=== PATIENT | male | born 1940 | race Caucasian/White ===

== ENCOUNTER 2017-02-07 14:59 | Emergency (ER) | payer MEDICARE, OTHER ==
[2017-02-07 15:05] VITALS: BP 110/61
[2017-02-07] MEDS ORDERED: oxyCOD/ACETAMIN 5 MG/325 MG TABLET PO STA (15:37)
[2017-02-07] MEDS ORDERED: oxyCOD/ACETAMIN 5 MG/325 MG TABLET PO ONE (15:38)
--- NOTE | 2017-02-07 15:38 | XRAY Preliminary Report ---
Exam: XR Shoulder 3 View LT IMPRESSION: 1. Acute oblique left proximal humeral diaphyseal fracture, not significantly displaced. Recommend a dedicated left humerus x-ray to further evaluate. [facility] SITE ID: [id number]
--- NOTE | 2017-02-07 15:40 | XRAY Report ---
EXAM: LEFT SHOULDER RADIOGRAPHY EXAM DATE: 02/07/2017 03:30 PM. CLINICAL HISTORY: Injury. Left arm injury. COMPARISON: None. TECHNIQUE: 3 views. FINDINGS: Bones: Acute oblique left proximal humeral diaphyseal fracture, not significantly displaced. Recommen d a dedicated left humerus x-ray to further evaluate. Joints: The glenohumeral and acromioclavicular joints are normal. Soft tissues: Unremarkable IMPRESSION: 1. Acute oblique left proximal humeral diaphyseal fracture, not significantly displaced. Recommend a dedicated left humerus x-ray to further evaluate. [facility] Referring Provider Line: [phone] SITE ID: [id number]
--- NOTE | 2017-02-07 16:39 | XRAY Report ---
TWO VIEW LEFT HUMERUS: 02/07/2017 CLINICAL INDICATION: Fracture. FINDINGS: Frontal and lateral views of the left humerus demonstrate a nondisplaced spiral fracture o f the proximal humeral shaft. No distal fracture is seen. No radiopaque foreign body is appreciated i n the soft tissues. IMPRESSION: NONDISPLACED SPIRAL FRACTURE OF THE PROXIMAL HUMERAL SHAFT. JOB #: [id number] EXT JOB #:[id number]
--- NOTE | 2017-02-07 17:26 | ED Physician Documentation ---
History of Present Illness - Stated complaint Stated Complaint: LT SHOULDER PAIN - Chief complaint Chief Complaint: Ext Problem - Additonal information Additional information: hx from pt 76 male R handed jose FOOSH type injury few days ago trying to catch a spider in a glass pain since abruptly worse today after reaching Review of Systems Musculoskeletal: reports: Extremity pain PD PAST MEDICAL HISTORY - Past Medical History Past Medical History: Yes Cardiovascular: High cholesterol Respiratory: None Endocrine/Autoimmune: None GI: Colon polyps : Benign prostate hypertrophy HEENT: None Psych: None Musculoskeletal: Osteoarthritis Derm: Rosacea - Past Surgical History Past Surgical History: Yes General: Colonoscopy Ortho:  - Present Medications Home Medications: Ambulatory Orders Medication Instructions Recorded Confirmed Cholecalciferol (Vitamin D3) 1 tab PO DAILY 10/30/15 01/12/16 [Vitamin D] Simvastatin 10 mg PO DAILY 01/12/16 01/12/16 Oxycodone HCl/Acetaminophen 1 each PO Q6HR PRN #15 tablet 02/07/17 [Percocet 5-325 mg Tablet] - Allergies Allergies/Adverse Reactions: Allergies Allergy/AdvReac Type Severity Reaction Status Date / Time No Known Drug Allergies Allergy Verified 04/30/16 18:13 - Social History Does the pt smoke?: No Smoking Status: Never smoker Does the pt drink ETOH?: No Does the pt have substance abuse?: No - Immunizations Immunizations are current?: No - POLST Patient has POLST: No PD ED PE NORMAL - Vitals Vital signs reviewed: Yes - Cardiac Cardiac: RRR - Respiratory Respiratory: No respiratory distress, Clear bilaterally - Extremities Extremities: Other (L shoulder held to pt side, will not move in any direction, no sulcus or displaced humeral head, TTP ant and lateral, + sensation to deltoid and to ulnar median radial hand, 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/OK/thumbs up all 5/5, + radial pulse) Results - Vitals Vitals: Vital Signs - 24 hr 02/07/17 15:02 Temperature 36.6 C Heart Rate 66 Respiratory 18 Rate Blood Pressure 110/61 O2 Saturation 99 Oxygen O2 Source Room air - Rads (name of study) shoulder humerus Radiology: See rad report (non displaced spiral fx proximal to mid humerus) Procedures - Splint (location) LUE Splint applied by: Tech Type of splint: Long arm Other: Patient tolerated well, No complications, Neurovascular intact, Sling provided Departure - Departure Disposition: 01 Home, Self Care Clinical Impression: Humerus fracture Qualifiers: Encounter type: initial encounter Humerus Location: proximal Fracture type: closed Fracture morphology: unspecified fracture morphology Laterality: left Qualified Code(s): S42.202A - Unspecified fracture of upper end of left humerus , initial encounter for closed fracture Condition: Good Instructions: ED Splint Care Saleem Herzog Fx Follow-Up: [facility] [Provider Group] (call tomorrow to schedule) Prescriptions: Oxycodone HCl/Acetaminophen [Percocet 5-325 mg Tablet] 1 each PO Q6HR PRN #15 tablet PRN Reason: Severe Pain
== END 2017-02-07 17:49 | disposition home or self-care (01) ==
LOC: ED 14:59
DX: S42.345A Nondisplaced spiral fracture of shaft of humerus, left arm, initial encounter for closed fracture (principal); W18.30XA Fall on same level, unspecified, initial encounter; Y93.89 Activity, other specified
CPT/HCPCS: 29105; 73030; 73060; 99283; A9270

== ENCOUNTER 2017-05-04 15:48 | Outpatient (CLI) | payer MEDICARE, OTHER ==
--- NOTE | 2017-05-05 16:52 | CT Report ---
EXAM: LEFT FOOT CT WITHOUT CONTRAST EXAM DATE: 05/04/2017 04:56 PM. CLINICAL HISTORY: Non displaced fracture of body of left calcaneus. COMPARISON: Radiographs 05/04/2017. TECHNIQUE: Thin-section axial images were acquired of the foot without contrast. Post-processing: Cor onal and sagittal reformats. Other: None. In accordance with CT protocol optimization, one or more of the following dose reduction techniques w ere utilized for this exam: automated exposure control, adjustment of mA and/or KV based on patient s ize, or use of iterative reconstructive technique. FINDINGS: Bones and articular surfaces: There is a comminuted fracture involving the body of the calcaneus. Max imum cortical step-off at the medial and lateral aspect approximately 3-3.5 mm. Small articular surfa ce involvement without significant step-off or distraction. Posterior superior margin of the fracture extends just posterior to the posterior articular facet. Small nondisplaced fracture extends along t he anterior lateral margin of the posterior facet. Oblique nondisplaced comminuted fractures involve the articular surface at the middle facet with no measurable step-off or distraction. Nondisplaced fr acture at the lateral margin of the distal articular surface at the calcaneocuboid joint. There is jonatan int space narrowing and irregular subcortical cyst formation and cortical bone deformity at the artic ulation between the cuboid and navicular. Small posterior calcaneal enthesophyte formation. Bipartite medial sesamoid. Degenerative subchondral cyst formation at the first metatarsal head. Soft tissues: Nonspecific subcutaneous soft tissue edema over the medial and lateral aspect of the an kle and dorsum of the foot. Musculotendinous structures unremarkable. IMPRESSION: 1. Comminuted fracture of the body of the calcaneus. Several areas of articular surface involvement w ithout significant step-off or distraction. 2. 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 [facility] Referring Provider Line: [phone] SITE ID: [id number]
== END 2017-05-04 15:49 | disposition home or self-care (01) ==
LOC: DI 15:48
PROVIDERS: ATTEND Orthopaedic Surgery
DX: S92.015A Nondisplaced fracture of body of left calcaneus, initial encounter for closed fracture (principal)

== ENCOUNTER 2018-10-07 10:57 | Outpatient (CLI) | payer MEDICARE, OTHER ==
--- NOTE | 2018-10-08 15:54 | Ultrasound Report ---
Reason: RECURRENT UTI, PARESTHESIA, CERVICALGIA Procedure Date: 10/07/2018 Accession Number: [id number] / [id number] Procedure: US - Bladder CPT Code: FULL RESULT: EXAM: PELVIS ULTRASOUND, LIMITED EXAM DATE: 10/07/2018 11:50 AM. CLINICAL HISTORY: RECURRENT UTI, PARESTHESIA, CERVICALGIA. COMPARISON: ABDOMEN W/O 03/19/2014 11:37 AM. TECHNIQUE: Real-time scanning was performed with static images obtained. FINDINGS: No bladder wall thickening, mass, or bladder calculi visualized. Bilateral jets seen. The prevoid bladder volume was 773 cc. The postvoid bladder volume was 6.4 cc. Other: None. IMPRESSION: Normal bladder ultrasound. The post void bladder volume measured 6.4 cc. [facility]
--- NOTE | 2018-10-08 16:15 | XRAY Report ---
Reason: RECURRENT UTI, PARESTHESIA, CERVICALGIA Procedure Date: 10/07/2018 Accession Number: [id number] / [id number] Procedure: XR - Cervical Spine Complete CPT Code: FULL RESULT: EXAM: CERVICAL SPINE RADIOGRAPHY EXAM DATE: 10/07/2018 11:48 AM. CLINICAL HISTORY: RECURRENT UTI, PARESTHESIA, CERVICALGIA. COMPARISONS: None. TECHNIQUE: 5 views. FINDINGS: Alignment: Normal. No spondylolisthesis or scoliosis. Bones: The cervical vertebral bodies and posterior elements are well-visualized from the skull base through C7-T1. No fractures or bone lesions. Disks: There is mild disk height loss and endplate osteophyte formation at the C2-C3, C3-C4, and C4-C5 levels. There is moderate to severe disk height loss and endplate osteophyte formation at the C5-C6 and C6-C7 levels. Facets: There are mild multilevel degenerative facet changes. Neural Foramina: There is moderate neuroforaminal narrowing at the C3-C6 levels bilaterally. Soft Tissues: Normal. No prevertebral soft tissue swelling. The visualized lung apices are clear. IMPRESSION: 1. Multilevel degenerative changes of the cervical spine. There is moderate bilateral neural foraminal narrowing at multiple levels. 2. No acute osseous abnormality. [facility]
== END 2018-10-07 10:58 | disposition home or self-care (01) ==
LOC: DI 10:57
PROVIDERS: ATTEND Internal Medicine
DX: M50.31 Other cervical disc degeneration, high cervical region (principal); M48.02 Spinal stenosis, cervical region; M47.9 Spondylosis, unspecified; N39.0 Urinary tract infection, site not specified
CPT/HCPCS: 72050; 76857

== ENCOUNTER 2020-07-11 14:10 | Outpatient (CLI) | payer MEDICARE, OTHER | END 2020-07-11 14:11 | disposition home or self-care (01) | LOC: COV 14:10 | PROVIDERS: ATTEND Family Medicine | DX: Z20.828 Contact with and (suspected) exposure to other viral communicable diseases (principal) ==

== ENCOUNTER 2021-01-19 09:14 | Outpatient (CLI) | payer MEDICARE, OTHER ==
--- NOTE | 2021-01-19 10:06 | Ultrasound Report ---
PROCEDURE: Aorta Screening INDICATIONS: ENCOUNTER FOR SCREENING FOR CARDIOVASCULAR DISORDE TECHNIQUE: Real time scanning was performed of the aorta and iliac arteries, with image documentatio n. COMPARISON: None. FINDINGS: Aorta: Aortic atherosclerosis. Proximal aortic diameter measures 2.5 x 2.6 cm. Mid-aorta measures 1 .8 x 1.9 cm. Distal aortic diameter is 1.5 x 1.9 cm. Iliac arteries: Iliac atherosclerosis. Right common iliac artery measures 0.8 x 0.9 cm. Left common iliac artery measures 2.0 x 1.1 cm. IMPRESSION: Aortic and iliac atherosclerosis without aneurysm. Reviewed by: Chava Helton MD on 01/19/2021 10:05 AM PDT Approved by: Chava Helton MD on 01/19/2021 10:05 AM PDT Station ID: [id number]
== END 2021-01-19 09:15 | disposition home or self-care (01) ==
LOC: DI 09:14
PROVIDERS: ATTEND Internal Medicine
DX: I70.0 Atherosclerosis of aorta (principal); I70.8 Atherosclerosis of other arteries